=== PATIENT | male | born 1960 | race Caucasian/White ===

== ENCOUNTER → 2017-06-16 07:51 | Outpatient (CLI) | payer BC ==
[2013-08-27 11:11] VITALS: BMI 34.5
[~2017-06-16 07:51] MED LIST: IMURAN50 MG PO; PROTONIX40 MG PO; SOMA350 MG
[2017-06-16 08:24] LABS: BASOPHILS 0.6 % (0-2); EOSINOPHILS 3.1 % (0-7); HEMOGLOBIN 16.4 g/dL (13.5-17.5); IMMATURE GRANULOCYTES 0.1 % (0-5); LYMPHOCYTES 34.2 % (15-50); MCH 32.5 pg (26.0-34.0); MCHC 34.2 g/dL (31.0-37.0); MCV 95.2 fL (80.0-100.0); MEAN PLATELET VOLUME 9.8 fL (7.4-10.4); MONOCYTES 7.6 % (2-11); NEUTROPHILS 54.4 % (40-80); RBC 5.04 10x6/uL (4.20-6.10); RDW 13.6 % (11.5-14.5); WBC 7.1 10x3/uL (4.8-10.8)
[2017-06-16 08:33] LABS: PLATELET COUNT 259 10x3/uL (130-400)
[2017-06-16 08:50] LABS: ALBUMIN 4.1 g/dL (3.4-5.0); BILIRUBIN - DIRECT 0.11 mg/dL (0.00-0.30); BILIRUBIN - INDIRECT 0.49 mg/dL (0.00-1.00); BILIRUBIN - TOTAL 0.6 mg/dL (0.2-1.3); PROTEIN - SERUM 7.4 g/dL (6.4-8.2)
== END | disposition home or self-care (01) ==
LOC: D.US 07:51
PROVIDERS: Internal Medicine Gastroenterology
DX: K75.4 Autoimmune hepatitis (principal); K92.1 Melena; R12 Heartburn

== ENCOUNTER → 2017-07-06 08:36 | Outpatient (CLI) | payer BC ==
[2013-08-27 11:11] VITALS: BMI 34.5
== END | disposition home or self-care (01) ==
LOC: D.NM 08:36
DX: R10.13 Epigastric pain (principal)

== ENCOUNTER → 2017-10-04 15:17 | Outpatient (CLI) | payer BC ==
[2013-08-27 11:11] VITALS: BMI 34.5
[2017-10-04 15:42] LABS: BASOPHILS 0.7 % (0-2); EOSINOPHILS 2.5 % (0-7); HEMATOCRIT 46.4 % (42.0-54.0); HEMOGLOBIN 16.3 g/dL (13.5-17.5); IMMATURE GRANULOCYTES 0.3 % (0-5); LYMPHOCYTES 32.7 % (15-50); MCH 33.3 pg (26.0-34.0); MCHC 35.1 g/dL (31.0-37.0); MCV 94.9 fL (80.0-100.0); MEAN PLATELET VOLUME 9.4 fL (7.4-10.4); MONOCYTES 9.4 % (2-11); NEUTROPHILS 54.4 % (40-80); PLATELET COUNT 232 10x3/uL (130-400); RBC 4.89 10x6/uL (4.20-6.10); RDW 14.2 % (11.5-14.5); WBC 7.5 10x3/uL (4.8-10.8)
== END | disposition home or self-care (01) ==
LOC: D.LAB 15:17
PROVIDERS: Internal Medicine Gastroenterology
DX: K75.4 Autoimmune hepatitis (principal); K92.1 Melena; R12 Heartburn

== ENCOUNTER → 2017-11-09 15:12 | Outpatient (CLI) | payer BC ==
[2013-08-27 11:11] VITALS: BMI 34.5
[2017-11-09 15:33] LABS: BASOPHILS 0.8 % (0-2); EOSINOPHILS 2.1 % (0-7); HEMATOCRIT 46.6 % (42.0-54.0); HEMOGLOBIN 16.5 g/dL (13.5-17.5); IMMATURE GRANULOCYTES 0.2 % (0-5); LYMPHOCYTES 31.1 % (15-50); MCH 33.3 pg (26.0-34.0); MCHC 35.4 g/dL (31.0-37.0); MCV 94.1 fL (80.0-100.0); MEAN PLATELET VOLUME 10.2 fL (7.4-10.4); MONOCYTES 9.9 % (2-11); NEUTROPHILS 55.9 % (40-80); PLATELET COUNT 231 10x3/uL (130-400); RBC 4.95 10x6/uL (4.20-6.10); RDW 13.8 % (11.5-14.5); WBC 6.1 10x3/uL (4.8-10.8)
[2017-11-09 15:45] LABS: ALBUMIN 3.7 g/dL (3.4-5.0); BILIRUBIN - DIRECT 0.08 mg/dL (0.00-0.30); BILIRUBIN - INDIRECT 0.25 mg/dL (0.00-1.00); BILIRUBIN - TOTAL 0.33 mg/dL (0.2-1.3)
== END | disposition home or self-care (01) ==
LOC: D.LABREF 15:12
PROVIDERS: Internal Medicine Gastroenterology
DX: K75.4 Autoimmune hepatitis (principal); K92.1 Melena; R12 Heartburn

== ENCOUNTER → 2017-12-16 09:02 | Outpatient (CLI) | payer BC ==
[2013-08-27 11:11] VITALS: BMI 34.5
[2017-12-16 10:01] LABS: BASOPHILS 0.9 % (0-2); HEMATOCRIT 46.5 % (42.0-54.0); HEMOGLOBIN 16.2 g/dL (13.5-17.5); IMMATURE GRANULOCYTES 0.4 % (0-5); LYMPHOCYTES 39.2 % (15-50); MCH 32.7 pg (26.0-34.0); MCHC 34.8 g/dL (31.0-37.0); MCV 93.8 fL (80.0-100.0); MEAN PLATELET VOLUME 9.6 fL (7.4-10.4); MONOCYTES 8.6 % (2-11); NEUTROPHILS 47.9 % (40-80); PLATELET COUNT 216 10x3/uL (130-400); RBC 4.96 10x6/uL (4.20-6.10); RDW 13.8 % (11.5-14.5); WBC 5.6 10x3/uL (4.8-10.8)
== END | disposition home or self-care (01) ==
LOC: D.US 09:02
PROVIDERS: Internal Medicine Gastroenterology
DX: K75.4 Autoimmune hepatitis (principal); K92.1 Melena; R12 Heartburn

== ENCOUNTER → 2018-02-14 21:28 | Outpatient (CLI) | payer BC ==
[2013-08-27 11:11] VITALS: BMI 34.5
[2018-02-14 22:00] LABS: BASOPHILS 0.9 % (0-2); EOSINOPHILS 3.6 % (0-7); HEMATOCRIT 45.7 % (42.0-54.0); HEMOGLOBIN 15.7 g/dL (13.5-17.5); IMMATURE GRANULOCYTES 0.3 % (0-5); LYMPHOCYTES 38.1 % (15-50); MCH 33.3 pg (26.0-34.0); MCHC 34.4 g/dL (31.0-37.0); MCV 96.8 fL (80.0-100.0); MEAN PLATELET VOLUME 10.2 fL (7.4-10.4); NEUTROPHILS 48.1 % (40-80); PLATELET COUNT 256 10x3/uL (130-400); RBC 4.72 10x6/uL (4.20-6.10); WBC 5.8 10x3/uL (4.8-10.8)
[2018-02-14 22:13] LABS: ALBUMIN 3.7 g/dL (3.4-5.0); BILIRUBIN - DIRECT 0.1 mg/dL (0.00-0.30); BILIRUBIN - INDIRECT 0.27 mg/dL (0.00-1.00); BILIRUBIN - TOTAL 0.37 mg/dL (0.2-1.3)
== END | disposition home or self-care (01) ==
LOC: D.LABREF 21:28
PROVIDERS: Internal Medicine Gastroenterology
DX: K75.4 Autoimmune hepatitis (principal); K92.1 Melena; R12 Heartburn

== ENCOUNTER → 2018-05-05 08:09 | Outpatient (CLI) | payer BC ==
[2013-08-27 11:11] VITALS: BMI 34.5
[~2018-05-05 08:09] MED LIST changes: +MOTRIN600 MG PO; +PEPCID40 MG PO; +SOMA350 MG PO
[2018-05-11 06:52] VITALS: BMI 33.7
== END | disposition home or self-care (01) ==
LOC: D.HCCARDIO 03-27 08:30 → D.US 06-19 08:30
DX: I20.9 Angina pectoris, unspecified (principal)

== ENCOUNTER 2018-05-11 06:14 | Outpatient (CLI) | payer BC ==
[~2018-05-11] VITALS: Ht 170.2 cm; Wt 97.7 kg
--- NOTE | ~2018-05-11 | HEMODYNAMI ---
PATIENT:RAN MARIE MEDICAL RECORD: [id number] : 62 LOCATION:[facility] ADMISSION DATE: 05/11/18 Generatedon:05/11/20188:34 Patient name: RAN MARIE Patient #: [id number] SSN: DO B: 1960 Date of study: 05/11/2018 Page: Of Hemodynamic Procedure Report Patient Data Patient Demographics Procedure consent was obtained First Name: RAN Gender: Male Last Name: FRANK : 1960 Middle Initial: R Age: 57 year(s) Patient #: [id number] Race: Unknown Additional ID: [id number] Contact details Address: [place] [address] State: [facility] Zip code: [address] Past Medical History Allergies Allergen Reaction Date Comments Reported Codeine 05/11/2018 Admission Admission Data Admission Date: 05/11/2018 Admission Time: 6:14 Procedure Procedure Types Cath Procedure Diagnostic Procedure LHC LHC w/Coronaries Sedation Charges Moderate Sedation up to 15 minutes Procedure Description Procedure Date Procedure Date: 05/11/2018 Procedure Start Time: 8:11 Procedure End Time: 8:34 Procedure Staff Name Function Familia Appiah MD Performing Physician Tori Caldera RN Nurse Dalila Hua RT Scrub Ruparhonda Koehler RT Monitor Procedure Data Cath Procedure Fluoroscopy Diagnostic fluoroscopy Total fluoroscopy Time: 6.8 time: 6.8 min min Diagnostic fluoroscopy Total fluoroscopy dose: 929 dose: 929 mGy mGy Contrast Material Contrast Material Type Amount (ml) Isovue 300 124 Entry Location Entry Primary Successful Side Size Upsize Upsize Entry Closure Banda ccessful Closure Location (Fr) 1 (Fr) 2 (Fr) Remarks Device Remarks Radial Right 6 Fr Mechanical artery Short Compression Estimated blood loss: 5 ml Diagnostic catheters Device Type Used For End Catheter Placement DIAGNOSTIC Bijan 110cm LV Angiography 5Fr catheter ([id number]) DIAGNOSTIC Bijan 110cm Left Coronary 5Fr catheter ([id number]) Angiography DIAGNOSTIC AR1 MOD 5Fr Right Coronary catheter ([id number]) Angiography DIAGNOSTIC AR2 MOD 5 Fr Right Coronary catheter ([id number]) Angiography DIAGNOSTIC 3DRC 5Fr Right Coronary catheter ([id number]) Angiography Procedure Complications No complications Procedure Medications Medication Administration Route Dosage 0.9% NaCl I.V. 100 ml/hr Oxygen etCO2 Nasal cannula 2 l/min Lidocaine 2% added to field 20 Heparin Flush Bag added to field 2 bags (1000units/500ml NS) Radial Cocktail added to field 1 syringe (Verapomil 2mg/Nitro 400mcg/Heparin 1500units) Versed I.V. 2 mg Fentanyl I.V. 50 mcg Versed I.V. 2 mg Fentanyl I.V. 25 mcg Versed I.V. 2 mg Fentanyl I.V. 25 mcg Hemodynamics Rest Heart Rate: 71 (bpm) Pressure Samples Time Site Value (mmHg) Purpose Heart Use Rate(bpm) 8:15 LV 118/-3,9 EDP 84 8:16 AO 100/69(82) Pullback 89 8:16 LV 127/6,12 Pullback 89 Gradients Valve Time Site 1 Site 2 Mean SEP/DFP Peak To Heart Use (mmHg) (sec/min) Peak Rate (mmHg) (bpm) Aortic 8:16 LV AO 17 26 27 89 127/6,12 100/69(82) Calculations Valve P-P Mean Valve Index Valve Source Name Gradient Area Flow (cm2) Aortic 27 17 27 17 Snapshots Pre Cath Intra NCS Post Cath Vital Signs Time Heart Resp SPO2 etCO2 NIBP (mmHg) Rhythm Pain Sedation Rate (ipm) (%) (mmHg) Status Level (bpm) 7:56:04 56 23 98 21.7 135/90(112) NSR 0 (11) 10(A) , No pain 8:00:18 76 16 98 30.7 140/91(115) NSR 0 (11) 10(A) , No pain 8:04:30 78 12 98 37.5 136/94(110) NSR 0 (11) 10(A) , No pain 8:08:38 74 11 97 19.5 120/80(100) NSR 0 (11) 10(A) , No pain 8:12:52 69 11 96 31.5 128/79(102) NSR 0 (11) 10(A) , No pain 8:17:04 83 11 97 30 116/79(96) NSR 0 (11) 9(A) , No pain 8:21:13 71 10 96 33.7 119/78(101) NSR 0 (11) 9(A) , No pain 8:25:19 70 10 97 33.7 113/84(95) NSR 0 (11) 9(A) , No pain 8:29:29 68 10 98 34.5 115/76(95) NSR 0 (11) 10(A) , No pain 8:33:41 58 12 96 33.7 116/73(93) NSR 0 (11) 10(A) , No pain Medications Time Medication Route Dose Verified Delivered Reason Notes Ef fectiveness by by 7:56:15 0.9% NaCl I.V. 100 Familia Tori used for ml/hr Td Caldera mannequin maker 7:56:21 Oxygen etCO2 2 l/min Familia Tori used for Nasal Td Caldera procedure cannula RN 7:56:26 Lidocaine 2% added 20ml Familia Familia for local to vial Td Appiah MD anesthetic field 7:56:31 Heparin Flush added 2 bags Familia Familia used for Bag to Td Appiah MD procedure (1000units/500ml field NS) 7:56:38 Radial Cocktail added 1 Familia Familia used for (Verapomil to syringe Td Appiah MD procedure 2mg/Nitro field 400mcg/Heparin 1500units) 8:04:37 Versed I.V. 2 mg Familia Tori for Td Caldera sedation RN 8:04:44 Fentanyl I.V. 50 mcg Familia Toir for Td Caldera sedation RN 8:08:11 Versed I.V. 2 mg Familia Tori for Td Caldera sedation RN 8:08:16 Fentanyl I.V. 25 mcg Familia Tori for Td Caldera sedation RN 8:15:20 Versed I.V. 2 mg Familia Tori for Td Caldera sedation RN 8:15:24 Fentanyl I.V. 25 mcg Familia Tori for Td Caldera sedation automatic engraver Log Time Note 7:35:45 Rupa Counts RT(R) sent for patient. Start room use. 7:35:46 Time tracking: Regular hours (M-F 7:00 - 5:00) 7:35:51 Plan of Care:Hemodynamics will remain stable., Cardiac rhythm will remain stable., Comfort level will be maintained., Respiratory function will remain adequate., Patient/ family verbilizes understanding of procedure., Procedure tolerated without complication., Recovers from procedure without complications.. 7:50:27 Patient received from Pre/Post Procedure Room to [facility] Alert and oriented. Tansferred to table in Supine position. 7:50:28 Warm blankets applied, and shanice hugger turned on for patient comfort. 7:50:29 Correct patient and procedure confirmed by team. 7:50:30 Signed procedure consent form obtained from patient. 7:50:32 ECG and BP/O2 sat monitors applied to patient. 7:54:50 Full Disclosure recording started 7:54:55 Vital chart was started 7:55:08 Rhythm: sinus bradycardia 7:55:17 H&P Date Dictated: 05/11/2018 New H&P dictated by physician.. 7:55:19 Pre-procedure instructions explained to patient. 7:55:19 Pre-op teaching completed and patient verbalized understanding. 7:55:22 Family in patients room. 7:55:24 Patient NPO since Midnight. 7:55:55 Patient allergic to Codeine 7:55:57 Is the patient allergic to Iodine/contrast media? No. 7:56:00 Is patient on blood thinner?No 7:56:01 Patient diabetic? No. 7:56:04 Previous problem with sedation/anesthesia? No ? 7:56:06 Snore? Yes 7:56:07 Sleep apnea? No 7:56:09 Deviated septum? No 7:56:10 Opens mouth fully? Yes 7:56:10 Sticks out tongue? Yes 7:56:12 Airway obstruction? No ? 7:56:13 Dentures? No ? 7:56:15 0.9% NaCl 100 ml/hr I.V. was administered by Tori Caldera RN; used for procedure; 7:56:18 Pre procedure: right dorsailis pedis pulse 2+ Normal; easily identifiable; not easily obliterated 7:56:20 Modified Ryan's test Ulnar < 7 seconds 7:56:21 Oxygen 2 l/min etCO2 Nasal cannula was administered by Tori Caldera RN; used for procedure; 7:56:22 Patient pain scale 0/10 ?. 7:56:26 Lidocaine 2% 20ml vial added to field was administered by Familia Appiah MD; for local anesthetic; 7:56:29 IV patent on arrival in left forearm with 0.9% NaCl at [facility]. 7:56:31 Heparin Flush Bag (1000units/500ml NS) 2 bags added to field was administered by Familia Appiah MD; used for procedure; 7:56:35 Lab results completed and on chart. 7:56:38 Radial Cocktail (Verapomil 2mg/Nitro 400mcg/Heparin 1500units) 1 syringe added to field was administered by Familia Appiah MD; used for procedure; 7:56:40 Right Radial & Right Groin area was prepped with chlora-prep and draped in sterile fashion 7:56:41 Alarms reviewed by R. N. 7:56:41 Sharps counted by scrub and verified by R.N. 8:04:14 Final Timeout: patient, procedure, and site verified with staff and physician. All members of the team are in agreement. 8:04:19 Right Radial & Right Groin site verified by team. 8:04:21 Physical assessment completed. ASA score P 2 - A patient with mild systemic disease as per Familia Appiah MD. 8:04:25 Sedation plan: IV Moderate Sedation Medication:Versed, Fentanyl 8:04:37 Versed 2 mg I.V. was administered by Tori Caldera RN; for sedation; 8:04:44 Fentanyl 50 mcg I.V. was administered by Tori Caldera RN; for sedation; 8:07:12 Baseline sample Acquired. 8:07:20 Zero performed for pressure channel P1 8:08:11 Versed 2 mg I.V. was administered by Tori Caldera RN; for sedation; 8:08:16 Fentanyl 25 mcg I.V. was administered by Tori Caldera RN; for sedation; 8:11:23 Procedure started. 8:11:56 Local anesthetic to right radial artery with Lidocaine 2% by Familia Appiah MD.INITIAL ACCESS ONLY 8:12:24 A 6 Fr Short sheath was inserted into the Right Radial artery 8:13:34 Use device set Radial Dx or PCI 8:13:35 ACIST Syringe (14510) opened to sterile field. 8:13:35 Medline Cath Pack ([id number]) opened to sterile field. 8:13:36 Bag Decanter (2001S) opened to sterile field. 8:13:36 DIAGNOSTIC WIRE .035 260cm J wire (441160) opened to sterile field. 8:13:37 ACIST Hand Control (30831) opened to sterile field. 8:13:37 ACIST Manifold (85061) opened to sterile field. 8:13:39 MBrace Wrist Support ([id number]) opened to sterile field. 8:13:43 SHEATH 6FR Slender (23-4340) opened to sterile field. 8:14:08 A DIAGNOSTIC Bijan 110cm 5Fr catheter ([id number]) was advanced over the wire and used for LV Angiography. 8:14:10 Tegaderm 4 x 4 (1626W) opened to sterile field. 8:15:20 Versed 2 mg I.V. was administered by Tori Caldera RN; for sedation; 8:15:24 Fentanyl 25 mcg I.V. was administered by Tori Caldera RN; for sedation; 8:15:44 LV gram done using JUSTIN 8:15:49 Injector settings: Ml/sec: 5, Volume: 15, 8:15:51 LV hemodynamics recorded. 8:16:10 EF : 40 % 8:17:30 A DIAGNOSTIC Bijan 110cm 5Fr catheter (756621) was advanced over the wire and used for Left Coronary Angiography. 8:18:21 Catheter removed. 8:19:21 A DIAGNOSTIC AR1 MOD 5Fr catheter ([id number]) was advanced over the wire and used for Right Coronary Angiography. removed unable to cannulate 8:21:41 Catheter removed. 8:22:29 A DIAGNOSTIC AR2 MOD 5 Fr catheter ([id number]) was advanced over the wire and used for Right Coronary Angiography. removed, unable to cannulate 8:25:36 A DIAGNOSTIC 3DRC 5Fr catheter ([id number]) was advanced over the wire and used for Right Coronary Angiography. 8:29:26 Catheter removed. 8:29:39 Sheath removed intact; hemostasis achieved with Mechanical Compression to the Right Radial artery. 8:29:41 Procedure ended.(Physican Out) 8:30:01 Fluoroscopy time 06.80 minutes. 8:30:06 Flurop Dose total: 929 8:30:06 Fluoroscopy dose: 929 mGy 8:30:09 Contrast amount:Isovue 300 124ml. 8:30:11 Sharps counted by scrub and verified by R.N. 8:30:14 TR band inflated with 12cc of air. 8:30:15 Insertion/operative site no bleeding no hematoma. 8:30:33 Post right radial artery:stable, clean and dry 8:30:34 Post Procedure Pulses reassessed and unchanged 8:30:37 Post-procedure physical assessment completed. ASA score P 2 - A patient with mild systemic disease as per Familia Appiah MD. 8:30:39 Post procedure rhythm: unchanged. 8:30:42 Estimated blood loss: 5 ml 8:30:43 Post procedure instruction explained to patient.Patient verbalizes understanding. 8:30:44 Patient needs reinforcement of post procedure teaching. 8:30:56 Procedure type changed to Cath procedure, Diagnostic procedure, LHC, LHC w/Coronaries, Sedation Charges, Moderate Sedation up to 15 minutes 8:31:01 Procedure Complication : No complications 8:31:03 See physician's report for complete and final results. 8:31:11 TR BAND Standard ([id number]) opened to sterile field. 8:31:23 Procedure and supply charges have been captured, reviewed, submitted and are correct. 8:34:02 Vital chart was stopped 8:34:04 Report given to Pre/Post Procedure Room. 8:34:07 Patient transfered to Pre/Post Procedure Room with Stretcher. 8:34:16 Procedure ended. 8:34:16 Full Disclosure recording stopped 8:34:19 End room use (Document Last) Device Usage Item Name Manufacture Quantity Catalog Hospital Part Current Minimal Lot# / Number Charge Number Stock Stock Serial# Code ACIST Acist 1 10678 475840 038634 918864 20 Syringe Medical (28910) Systems Inc Medline Medline 1 [id number] 374554 33710 269955 5 Cath Pack ([id number]) Bag Microtek 1 609791 95606 431944 5 Decanter Medical Inc. () DIAGNOSTIC [place] 1 164128 820577 496277 525777 30 WIRE .035 260cm J wire (655344) ACIST Hand Acist 1 58098 388456 510164 547129 5 Control Medical (45599) Systems Inc ACIST Acist 1 24003 442060 331281 861495 5 Emergent Discovery (16082) Systems Inc MBrace Advanced 1 140-0250-00 848355 16752 785709 5 Wrist Vascular Support Dynamics ([id number]) SHEATH 6FR Terumo 1 [id number] 341171 171435 820768 5 Slender (80-1060) DIAGNOSTIC Terumo 1 405023 682287 450618 511823 5 Bijan 110cm 5Fr catheter (723341) Tegaderm 4 3M 1 1626W 241273 364846 856890 5 x 4 (1626W) DIAGNOSTIC Cardinal 1 [id number] 660428 181068 069918 15 AR1 MOD 5Fr Health catheter (931617Z) DIAGNOSTIC Cardinal 1 [id number] 279048 873235 126274 20 AR2 MOD 5 Health Fr catheter (468429B) DIAGNOSTIC Cardinal 1 [id number] 867844 486444 522190 9 3DRC 5Fr Health catheter (242713F) TR BAND Terumo 1 [id number] 320829 851446 204303 40 Standard ([id number]) Signature Audit [place] Stage Time Signature Unsigned Intra-Procedure 05/11/2018 Rupa 8:34:31 AM Counts RT(R) Signatures Monitor : Rupa Signature : Counts RT Date : Time : [place] [id number] [facility] [place] [address]
[~2018-05-11 06:14] MED LIST changes: -MOTRIN600 MG PO; -PEPCID40 MG PO; -SOMA350 MG PO
[2018-05-11] MEDS ORDERED: SOMA350 MG PO (06:32)
[2018-05-11] MEDS ORDERED: MOTRIN600 MG PO (06:34)
[2018-05-11] MEDS ORDERED: PEPCID40 MG PO (06:35)
[2018-05-11 06:52] VITALS: BP 127/88; Ht 170.2 cm; Wt 97.7 kg
[2018-05-11 07:24] LABS: EOSINOPHILS 3.4 % (0-7); HEMOGLOBIN 15.6 g/dL (13.5-17.5); IMMATURE GRANULOCYTES 0.2 % (0-5); LYMPHOCYTES 36.5 % (15-50); MCH 32.7 pg (26.0-34.0); MCHC 34.7 g/dL (31.0-37.0); MCV 94.3 fL (80.0-100.0); MEAN PLATELET VOLUME 10.1 fL (7.4-10.4); MONOCYTES 8.8 % (2-11); NEUTROPHILS 50.1 % (40-80); PLATELET COUNT 234 10x3/uL (130-400); RBC 4.77 10x6/uL (4.20-6.10); RDW 13.8 % (11.5-14.5); WBC 6.2 10x3/uL (4.8-10.8)
[2018-05-11 08:02] LABS: ALT (SGPT) 55 U/L (10-68)
[2018-05-11 08:04] LABS: CALC OSMOLALITY 278 mosm/kg (275-300); CALCIUM 8.9 mg/dL (8.5-10.1); CARBON DIOXIDE 23.6 mmol/L (21.0-32.0); CHLORIDE - SERUM 105 mmol/L (98-107); CREATININE - SERUM 0.9 mg/dL (0.6-1.3); GLUCOSE 98 mg/dL (74-106); POTASSIUM - SERUM 4.3 mmol/L (3.5-5.1); SODIUM 139 mmol/L (136-145); UREA NITROGEN 14 mg/dL (7-18); eGFR NON AFRICAN AMERICAN > 90 mL/min (90-120)
--- NOTE | 2018-05-11 09:08 | NUR ---
TR BAND IS CDI, FINGERS WARM AND CAP REFILL IS BRISK. VSS. IV PATENT AND INFUSING PER ORDERS. PO FLUIDS AT BEDSIDE, CALL LIGHT IN REACH.
--- NOTE | 2018-05-11 09:22 | NUR ---
SANDWICH AT BEDSIDE, PT SITTING UP IN BED VISITING WITH . TR ABNS IS CDI, FINGERS WARM AND CAP REFILL IS BRISK. SINUS RHYTHM AT 66, BP IS 106/66.
--- NOTE | 2018-05-11 09:40 | NUR ---
PT SLEEPING, RESP WITH EASE ON ROOM AIR. 3 CC OF AIR WEANED FROM TR BAND WITH NO BLEEDING NOTED. FINGERS WARM AND CAP REFILL IS BRISK. VSS, AT BEDSIDE.
--- NOTE | 2018-05-11 10:05 | NUR ---
4 CC OF AIR WEANED FROM TR BAND WITH NO BLEEDING NOTED. FINGERS WARM AND CAP REFILL IS BRISK. NSR, RATE 60. PT SLEEPING, RESP WITH EASE.
--- NOTE | 2018-05-11 10:29 | NUR ---
SMALL AMOUNT OF OOZING NOTED FROM CATH SITE. 2 CC OF AIR REINSTILLED AND NO FURTHER OOZING NOTED. WILL CONTINUE TO MONITOR. HAND IS WARM AND CAP REFILL IS BRISK.
--- NOTE | 2018-05-11 10:55 | NUR ---
4 CC OF AIR WEANED FROM TR BAND WITH NO BLEEDING NOTED. FINGERS WARM AND CAP REFILL IS BRISK. SINUS DEVORAH AT 57, BP IS 110/73. AT BEDSIDE, CALL LIGHT IN REACH.
--- NOTE | 2018-05-11 11:21 | NUR ---
ALL AIR WEANED FROM TR BAND WITH NO BLEEDINGN OTED. FINGERS WARM AND CAP REFILL IS BRISK. PULSES PALPABLE. IV DC'D WITH CATH INTACT. DC INSTRUCTIONS REVIEWED WIT PT AND WHO VERBALIZE UNDERSTANDING. PT DRESSING FOR DC WITH ASSIST.
--- NOTE | 2018-05-11 11:32 | NUR ---
2X2 AND TEGADERM CDI TO CATH SITE, TR BAND IS OFF AND NO BLEEDING OR HEMATOMA NOTED. PULSES PALPABLE. PT DRESSING FOR DC TO HOME WITH ASSIST.
--- NOTE | 2018-05-11 11:40 | NUR ---
DRESSING TO RIGHT WRIST IS CDI, WRIST IMMOBILIZER IN PLACE. HAND IS WARM, CAP REFILL IS BRISK, PULSES PALPABLE. PT IS DRESSED FOR DC AND DENIES ANY C/O. PT ESCORTED TO PRIVATE AUTO VIA WC BY NURSE WITH DRIVING HIM HOME.
== END 2018-05-11 11:40 | disposition home or self-care (01) ==
LOC: D.CATH 06:14
PROVIDERS: Internal Medicine Cardiovascular Disease
DX: I51.9 Heart disease, unspecified (principal); Z01.812 Encounter for preprocedural laboratory examination

== ENCOUNTER → 2018-08-16 07:08 | Outpatient (CLI) | payer BC ==
[2018-05-11 06:52] VITALS: BMI 33.7
[~2018-08-16 07:08] MED LIST changes: +MOTRIN600 MG PO; +PEPCID40 MG PO; +SOMA350 MG PO
[2018-08-16 08:20] LABS: ALBUMIN 3.7 g/dL (3.4-5.0); BASOPHILS 0.9 % (0-2); BILIRUBIN - DIRECT 0.09 mg/dL (0.00-0.30); BILIRUBIN - INDIRECT 0.31 mg/dL (0.00-1.00); BILIRUBIN - TOTAL 0.4 mg/dL (0.2-1.3); EOSINOPHILS 2.3 % (0-7); HEMATOCRIT 47.1 % (42.0-54.0); HEMOGLOBIN 16.4 g/dL (13.5-17.5); IMMATURE GRANULOCYTES 0.3 % (0-5); LYMPHOCYTES 30.7 % (15-50); MCHC 34.8 g/dL (31.0-37.0); MCV 94.8 fL (80.0-100.0); MEAN PLATELET VOLUME 9.6 fL (7.4-10.4); MONOCYTES 8.1 % (2-11); NEUTROPHILS 57.7 % (40-80); PLATELET COUNT 246 10x3/uL (130-400); PROTEIN - SERUM 7.9 g/dL (6.4-8.2); RBC 4.97 10x6/uL (4.20-6.10); WBC 6.6 10x3/uL (4.8-10.8)
== END | disposition home or self-care (01) ==
LOC: D.US 07:08
PROVIDERS: ATTEND Internal Medicine Gastroenterology
DX: K75.4 Autoimmune hepatitis (principal)

== ENCOUNTER → 2018-12-22 07:37 | Outpatient (CLI) | payer BC ==
[2018-05-11 06:52] VITALS: BMI 33.7
[2018-12-22 08:10] LABS: BASOPHILS 0.8 % (0-2); HEMATOCRIT 46.4 % (42.0-54.0); HEMOGLOBIN 16.6 g/dL (13.5-17.5); IMMATURE GRANULOCYTES 0.3 % (0-5); LYMPHOCYTES 36.5 % (15-50); MCH 33.1 pg (26.0-34.0); MCHC 35.8 g/dL (31.0-37.0); MCV 92.6 fL (80.0-100.0); MEAN PLATELET VOLUME 9.6 fL (7.4-10.4); MONOCYTES 10.7 % (2-11); NEUTROPHILS 48.7 % (40-80); PLATELET COUNT 238 10x3/uL (130-400); RBC 5.01 10x6/uL (4.20-6.10); RDW 13.8 % (11.5-14.5); WBC 6.1 10x3/uL (4.8-10.8)
== END | disposition home or self-care (01) ==
LOC: D.LAB 07:37
PROVIDERS: ATTEND Internal Medicine Gastroenterology
DX: K75.9 Inflammatory liver disease, unspecified (principal); R12 Heartburn; K92.1 Melena

== ENCOUNTER → 2019-01-25 09:33 | Outpatient (CLI) | payer BC ==
[2018-05-11 06:52] VITALS: BMI 33.7
[2019-01-25 09:53] LABS: BASOPHILS 1.1 % (0-2); EOSINOPHILS 3.2 % (0-7); HEMATOCRIT 46.6 % (42.0-54.0); HEMOGLOBIN 15.7 g/dL (13.5-17.5); IMMATURE GRANULOCYTES 0.2 % (0-5); LYMPHOCYTES 34.6 % (15-50); MCH 32.4 pg (26.0-34.0); MCHC 33.7 g/dL (31.0-37.0); MCV 96.1 fL (80.0-100.0); MEAN PLATELET VOLUME 9.2 fL (7.4-10.4); MONOCYTES 9.4 % (2-11); NEUTROPHILS 51.5 % (40-80); PLATELET COUNT 235 10x3/uL (130-400); RBC 4.85 10x6/uL (4.20-6.10); RDW 13.7 % (11.5-14.5); WBC 5.3 10x3/uL (4.8-10.8)
[2019-01-25 10:15] LABS: ALBUMIN 3.7 g/dL (3.4-5.0); BILIRUBIN - INDIRECT 0.28 mg/dL (0.00-1.00); BILIRUBIN - TOTAL 0.33 mg/dL (0.2-1.3); PROTEIN - SERUM 7.6 g/dL (6.4-8.2)
[2019-01-25 10:20] LABS: BILIRUBIN - DIRECT 0.05 mg/dL (0.00-0.30)
== END | disposition home or self-care (01) ==
LOC: D.US 09:33
PROVIDERS: ATTEND Internal Medicine Gastroenterology
DX: K75.4 Autoimmune hepatitis (principal)

== ENCOUNTER → 2019-05-22 13:57 | Outpatient (CLI) | payer BC ==
[2018-05-11 06:52] VITALS: BMI 33.7
[2019-05-22 14:25] LABS: BASOPHILS 1.4 % (0-2); HEMATOCRIT 46.7 % (42.0-54.0); HEMOGLOBIN 16.1 g/dL (13.5-17.5); IMMATURE GRANULOCYTES 0.3 % (0-5); LYMPHOCYTES 36.6 % (15-50); MCH 32.8 pg (26.0-34.0); MCHC 34.5 g/dL (31.0-37.0); MCV 95.1 fL (80.0-100.0); MEAN PLATELET VOLUME 9.4 fL (7.4-10.4); MONOCYTES 8.7 % (2-11); RBC 4.91 10x6/uL (4.20-6.10); WBC 6.5 10x3/uL (4.8-10.8)
[2019-05-22 14:31] LABS: PLATELET COUNT 284 10x3/uL (130-400)
[2019-05-22 14:48] LABS: BILIRUBIN - DIRECT 0.1 mg/dL (0.00-0.30); BILIRUBIN - INDIRECT 0.39 mg/dL (0.00-1.00); BILIRUBIN - TOTAL 0.49 mg/dL (0.2-1.3); PROTEIN - SERUM 7.6 g/dL (6.4-8.2)
== END | disposition home or self-care (01) ==
LOC: D.LAB 13:57
PROVIDERS: ATTEND Internal Medicine Gastroenterology
DX: K75.4 Autoimmune hepatitis (principal); Z79.899 Other long term (current) drug therapy

== ENCOUNTER → 2019-09-06 07:44 | Outpatient (CLI) | payer BC ==
[2018-05-11 06:52] VITALS: BMI 33.7
[2019-09-06 08:31] LABS: BILIRUBIN - DIRECT 0.1 mg/dL (0.00-0.30); BILIRUBIN - INDIRECT 0.28 mg/dL (0.00-1.00); BILIRUBIN - TOTAL 0.38 mg/dL (0.2-1.3); PROTEIN - SERUM 7.9 g/dL (6.4-8.2)
[2019-09-06 09:13] LABS: EOSINOPHILS 2.6 % (0-7); HEMATOCRIT 48.4 % (42.0-54.0); HEMOGLOBIN 15.9 g/dL (13.5-17.5); IMMATURE GRANULOCYTES 0.3 % (0-5); LYMPHOCYTES 32.1 % (15-50); MCHC 32.9 g/dL (31.0-37.0); MCV 97.4 fL (80.0-100.0); MEAN PLATELET VOLUME 9.9 fL (7.4-10.4); MONOCYTES 8.9 % (2-11); NEUTROPHILS 55.1 % (40-80); PLATELET COUNT 280 10x3/uL (130-400); RBC 4.97 10x6/uL (4.20-6.10); RDW 13.6 % (11.5-14.5); WBC 6.2 10x3/uL (4.8-10.8)
== END | disposition home or self-care (01) ==
LOC: D.US 07-30 08:30
PROVIDERS: ATTEND Internal Medicine Gastroenterology
DX: K75.4 Autoimmune hepatitis (principal)

== ENCOUNTER → 2020-08-26 06:41 | Outpatient (CLI) | payer BC ==
[2018-05-11 06:52] VITALS: BMI 33.7
[2020-08-26 07:25] LABS: BASOPHILS 0.6 % (0-2); EOSINOPHILS 2.2 % (0-7); HEMATOCRIT 47.5 % (42.0-54.0); HEMOGLOBIN 16.3 g/dL (13.5-17.5); IMMATURE GRANULOCYTES 0.3 % (0-5); LYMPHOCYTE ABS# 2.32 10x3/uL (1.32-3.57); LYMPHOCYTES 29.6 % (15-50); MCH 32.5 pg (26.0-34.0); MCHC 34.3 g/dL (31.0-37.0); MCV 94.6 fL (80.0-100.0); MONOCYTES 9.2 % (2-11); NEUTROPHIL ABS# 4.57 10x3/uL (1.78-5.38); NEUTROPHILS 58.1 % (40-80); PLATELET COUNT 277 10x3/uL (130-400); RBC 5.02 10x6/uL (4.20-6.10); RDW 13.7 % (11.5-14.5); WBC 7.9 10x3/uL (4.8-10.8)
[2020-08-26 07:28] LABS: ALBUMIN 3.9 g/dL (3.4-5.0); BILIRUBIN - DIRECT 0.13 mg/dL (0.00-0.30); BILIRUBIN - INDIRECT 0.28 mg/dL (0.00-1.00); BILIRUBIN - TOTAL 0.41 mg/dL (0.2-1.3); PROTEIN - SERUM 7.9 g/dL (6.4-8.2)
== END | disposition home or self-care (01) ==
LOC: D.US 06:41
PROVIDERS: ATTEND Internal Medicine Gastroenterology
DX: K75.4 Autoimmune hepatitis (principal)

== ENCOUNTER → 2020-09-12 12:07 | Outpatient (CLI) | payer BC ==
[2018-05-11 06:52] VITALS: BMI 33.7
== END | disposition home or self-care (01) ==
LOC: D.LABREF 12:07
PROVIDERS: ATTEND Otolaryngology
DX: R23.8 Other skin changes (principal)

== ENCOUNTER → 2020-10-22 10:42 | Outpatient (CLI) | payer BC ==
[2018-05-11 06:52] VITALS: BMI 33.7
== END | disposition home or self-care (01) ==
LOC: D.MRI 10:42
PROVIDERS: ATTEND Family Medicine
DX: G44.53 Primary thunderclap headache (principal)